=== PATIENT | female | born 1985 | race Caucasian/White ===

== ENCOUNTER 2018-07-11 22:18 | Emergency (ER) | payer MEDICAID ==
--- NOTE | 2018-07-11 22:30 | ER Report ---
History and Physical Time Seen By MD: 22:30 Hx. of Stated Complaint: BS OVER 600 AT HOME. HPI/ROS CHIEF COMPLAINT: blood glucose high HISTORY OF PRESENT ILLNESS: This is a 32 year old female. She had elevated glucose at home. Blood glucose meter read "hi". Has been urinating more and drinking more, but feels dehydrated. Took her [place] and Novolog insulin tonight, correction dose of Novolog. No recent illnesses. No cough or chest pain. No fever or chills. Normal bowel and urination. Mild nausea. No vomiting. No change in medicines, the insulin pens are new pens. Allergies: Coded Allergies: lisinopril (Verified Adverse Reaction, Unknown, 07/11/18) "INCREASES BLOOD SUGAR" Reviewed Nurses Notes: Yes Hx Substance Use Disorder: No Hx Alcohol Use: No Constitutional Vital Sign - Last 24 Hours 07/11/18 07/11/18 07/11/18 07/11/18 22:23 22:30 22:54 23:00 Temp 98.1 Pulse 116 117 101 Resp 16 B/P (MAP) 184/106 159/92 (114) 152/101 (118) Pulse Ox 93 94 92 O2 Delivery Room Air 07/11/18 07/12/18 07/12/18 07/12/18 23:30 00:00 01:00 01:29 Pulse 98 100 B/P (MAP) 139/94 (109) 136/77 (96) 133/90 (104) Pulse Ox 94 94 94 Intake and Output 07/11/18 07/11/18 07/12/18 15:00 23:00 07:00 Intake Total 2000 ml Balance 2000 ml Physical Exam General Appearance: The patient is alert, has no immediate need for airway protection and no current signs of toxicity. Eyes: Pupils equal and round no injection. ENT: Normal oral mucosa. Moist mucous membranes. Tympanic membranes are normal. Neck: Neck is supple and non tender. Respiratory: Chest is non tender, lungs are clear to auscultation. Cardiac: regular rate and rhythm Gastrointestinal: Abdomen is soft and non tender, no masses, bowel sounds normal. Musculoskeletal: Extremities have full range of motion. Non tender. Skin: No rashes or lesions. DIFFERENTIAL DIAGNOSIS: After history and physical exam differential diagnosis was considered for elevated glucose, will treat from some dehydration and check for signs of DKA. Medical Decision Making Data Points Result Diagram: 07/11/18224907/11/182249 Laboratory Hematology Test 07/11/18 22:50 07/11/18 23:53 Red Blood Count 4.93 M/uL (4.17-5.56) Mean Corpuscular Volume 84.9 fL (80.0-96.0) Mean Corpuscular Hemoglobin 28.8 pg (26.0-33.0) Mean Corpuscular Hemoglobin Concent 33.9 g/dL (32.0-36.0) Red Cell Distribution Width 13.2 % (11.5-14.5) Mean Platelet Volume 9.9 fL (7.2-11.1) Neutrophils (%) (Auto) 55.7 % (39.4-72.5) Lymphocytes (%) (Auto) 36.5 % (17.6-49.6) Monocytes (%) (Auto) 6.6 % (4.1-12.4) Eosinophils (%) (Auto) 0.4 % (0.4-6.7) Basophils (%) (Auto) 0.8 % (0.3-1.4) Nucleated RBC Relative Count (auto) 0.0 /100WBC Neutrophils # (Auto) 4.2 K/uL (2.0-7.4) Lymphocytes # (Auto) 2.8 K/uL (1.3-3.6) Monocytes # (Auto) 0.5 K/uL (0.3-1.0) Eosinophils # (Auto) 0.0 K/uL (0.0-0.5) Basophils # (Auto) 0.1 K/uL (0.0-0.1) Nucleated RBC Absolute Count (auto) 0.00 K/uL Urine Color Colorless Urine Clarity Clear Urine pH 6.0 pH (4.8-9.5) Urine Specific [place] 1.017 Urine Protein 100 mg/dL (NEGATIVE) Urine Glucose (UA) 500 mg/dL (NEGATIVE) Urine Ketones Trace mg/dL (NEGATIVE) Urine Blood Small (NEGATIVE) Urine Nitrite Negative (NEGATIVE) Urine Bilirubin Negative (NEGATIVE) Urine Urobilinogen Negative mg/dL (0.2-1.9) Urine Leukocyte Esterase Negative (NEGATIVE) Urine RBC 1 /HPF (0-2/HPF) Urine WBC <1 /HPF (0-5/HPF) Urine Squamous Epithelial Cells Many /LPF (</=FEW) Urine Bacteria Negative /HPF (NONE-FEW) Urine Mucus None /HPF (NONE-FEW) Sodium Level 131 mmol/L (137-145) Potassium Level 4.4 mmol/L (3.5-5.0) Chloride Level 96 mmol/L (98-107) Carbon Dioxide Level 20 mmol/L (22-31) Blood Urea Nitrogen 26 mg/dl (7-18) Creatinine 1.10 mg/dl (0.52-1.04) Glomerular Filtration Rate Calc 57.9 Random Glucose 554 mg/dl (75-110) Calcium Level 9.0 mg/dl (8.4-10.2) Total Bilirubin 0.3 mg/dl (0.2-1.3) Aspartate Amino Transf (AST/SGOT) 28 U/L (0-35) Alanine Aminotransferase (ALT/SGPT) 20 U/L (0-56) Alkaline Phosphatase 96 U/L (0-126) Total Protein 7.3 g/dl (6.3-8.2) Albumin 4.1 g/dl (3.5-5.0) Acetone, Qualitative Negative Whole Blood Glucose 369 mg/DL (75-110) Chemistry Test 07/11/18 22:50 07/11/18 23:53 White Blood Count 7.6 k/uL (4.5-11.0) Red Blood Count 4.93 M/uL (4.17-5.56) Hemoglobin 14.2 g/dL (12.0-16.0) Hematocrit 41.9 % (34.0-47.0) Mean Corpuscular Volume 84.9 fL (80.0-96.0) Mean Corpuscular Hemoglobin 28.8 pg (26.0-33.0) Mean Corpuscular Hemoglobin Concent 33.9 g/dL (32.0-36.0) Red Cell Distribution Width 13.2 % (11.5-14.5) Platelet Count 266 K/uL (150-450) Mean Platelet Volume 9.9 fL (7.2-11.1) Neutrophils (%) (Auto) 55.7 % (39.4-72.5) Lymphocytes (%) (Auto) 36.5 % (17.6-49.6) Monocytes (%) (Auto) 6.6 % (4.1-12.4) Eosinophils (%) (Auto) 0.4 % (0.4-6.7) Basophils (%) (Auto) 0.8 % (0.3-1.4) Nucleated RBC Relative Count (auto) 0.0 /100WBC Neutrophils # (Auto) 4.2 K/uL (2.0-7.4) Lymphocytes # (Auto) 2.8 K/uL (1.3-3.6) Monocytes # (Auto) 0.5 K/uL (0.3-1.0) Eosinophils # (Auto) 0.0 K/uL (0.0-0.5) Basophils # (Auto) 0.1 K/uL (0.0-0.1) Nucleated RBC Absolute Count (auto) 0.00 K/uL Urine Color Colorless Urine Clarity Clear Urine pH 6.0 pH (4.8-9.5) Urine Specific [place] 1.017 Urine Protein 100 mg/dL (NEGATIVE) Urine Glucose (UA) 500 mg/dL (NEGATIVE) Urine Ketones Trace mg/dL (NEGATIVE) Urine Blood Small (NEGATIVE) Urine Nitrite Negative (NEGATIVE) Urine Bilirubin Negative (NEGATIVE) Urine Urobilinogen Negative mg/dL (0.2-1.9) Urine Leukocyte Esterase Negative (NEGATIVE) Urine RBC 1 /HPF (0-2/HPF) Urine WBC <1 /HPF (0-5/HPF) Urine Squamous Epithelial Cells Many /LPF (</=FEW) Urine Bacteria Negative /HPF (NONE-FEW) Urine Mucus None /HPF (NONE-FEW) Glomerular Filtration Rate Calc 57.9 Calcium Level 9.0 mg/dl (8.4-10.2) Total Bilirubin 0.3 mg/dl (0.2-1.3) Aspartate Amino Transf (AST/SGOT) 28 U/L (0-35) Alanine Aminotransferase (ALT/SGPT) 20 U/L (0-56) Alkaline Phosphatase 96 U/L (0-126) Total Protein 7.3 g/dl (6.3-8.2) Albumin 4.1 g/dl (3.5-5.0) Acetone, Qualitative Negative Whole Blood Glucose 369 mg/DL (75-110) Toxicology Test 07/11/18 22:50 Acetone, Qualitative Negative Urinalysis Test 07/11/18 22:50 Urine Color Colorless Urine Clarity Clear Urine pH 6.0 pH (4.8-9.5) Urine Specific [place] 1.017 Urine Protein 100 mg/dL (NEGATIVE) Urine Glucose (UA) 500 mg/dL (NEGATIVE) Urine Ketones Trace mg/dL (NEGATIVE) Urine Blood Small (NEGATIVE) Urine Nitrite Negative (NEGATIVE) Urine Bilirubin Negative (NEGATIVE) Urine Urobilinogen Negative mg/dL (0.2-1.9) Urine Leukocyte Esterase Negative (NEGATIVE) Urine RBC 1 /HPF (0-2/HPF) Urine WBC <1 /HPF (0-5/HPF) Urine Squamous Epithelial Cells Many /LPF (</=FEW) Urine Bacteria Negative /HPF (NONE-FEW) Urine Mucus None /HPF (NONE-FEW) ED Course/Re-evaluation Clinical Indication for ER IV: Hydration, IV Access ED Course Trace ketones in urine, negative serum acetone. Improved with 2 liters of fluid. Blood sugars coming down. Will continue with correction doses at home. Decision to Disposition Date: Jul 12, 2018 Decision to Disposition Time: 01:24 Depart Departure Latest Vital Signs Vital Signs Date Time Temp Pulse Resp B/P (MAP) Pulse Ox O2 Delivery O2 Flow Rate FiO2 07/12/18 01:29 133/90 (104) 07/12/18 01:00 100 94 07/11/18 22:23 98.1 16 Room Air Impression: Primary Impression: Hyperglycemia due to type 2 diabetes mellitus Condition: Improved Disposition: HOME OR SELF-CARE Patient Instructions: Diabetic Hyperglycemia (ED) Additional Instructions: Keep using your correction doses of insulin to help with the elevated blood sugars. Rest and increase fluid intake. Follow-up with your primary care provider. 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
[2018-07-11] MEDS ORDERED: NS(*) 0.9% 1000 ML BAG 1,000 ML IV ONE ×2 (22:40→23:50)
[2018-07-11 23:07] LABS: PLATELET COUNT, AUTOMATED 266 K/uL (150-450)
[2018-07-12 01:29] VITALS: BP 133/90
== END 2018-07-12 01:42 | disposition home or self-care (01) ==
LOC: ER 22:30
DX: E11.65 Type 2 diabetes mellitus with hyperglycemia (principal)
CPT/HCPCS: 36416; 81001; 82009; 82948; 85025; 96360; 96361; 99283; J7030; 82040; 82247; 82310; 82374; 82435; 82565; 82947; 84075; 84132; 84155; 84295; 84450; 84460; 84520

== ENCOUNTER 2018-09-05 09:20 | Emergency (ER) | payer MEDICAID ==
--- NOTE | 2018-09-05 09:33 | ER Report ---
History and Physical Time Seen By MD: 09:33 HPI/ROS 33 y/o female with Type 1 DM presents with recent morning low blood sugars for the past few weeks. She is concerned today b/c her blood sugar was not as low as it has been, but yet she feels weak. She was so weak that her ex boyfriend could not get her out of the hotel room where she lives with her 11 y/o son. Had to call paramedics. States she recently moved to [place] from [place]. She does not have a PCM in [place] yet, but would like to keep her physician in [place]. She has not had her insulin regimen changed in years. She ate oranges after finding her glucose was 65. She now feels better. SHe does not have any complaints at this time, and says he feels back to her baseline. Allergies: Coded Allergies: lisinopril (Verified Adverse Reaction, Unknown, 07/11/18) "INCREASES BLOOD SUGAR" Home Meds Reported Medications Insulin Aspart (NOVOLOG) 100 Unit/Ml Soln, 100 UNIT SUBQ 09/05/18 Insulin Detemir (LEVEMIR) 100 Unit/Ml Injs, 100 UNIT SUBQ 09/05/18 Hx Substance Use Disorder: No Hx Alcohol Use: No Constitutional Vital Sign - Last 24 Hours 09/05/18 09/05/18 09/05/18 09/05/18 09:30 09:31 09:35 09:50 Temp 98.2 Pulse 103 97 97 Resp 18 B/P (MAP) 144/89 (107) 144/89 Pulse Ox 94 95 95 O2 Delivery Room Air 09/05/18 09/05/18 09/05/18 09/05/18 10:00 10:05 10:20 10:30 Pulse 95 93 B/P (MAP) 129/86 (100) 135/86 (102) Pulse Ox 95 95 09/05/18 09/05/18 09/05/18 10:35 10:50 11:00 Pulse 94 100 B/P (MAP) 153/94 (113) Pulse Ox 94 95 Physical Exam General Appearance: The patient is alert, has no immediate need for airway protection and no current signs of toxicity. Eyes: Pupils equal and round no injection. Respiratory: Chest is non tender, lungs are clear to auscultation. Cardiac: regular rate and rhythm Gastrointestinal: Abdomen is soft and non tender, no masses, bowel sounds normal. Skin: No rashes or lesions. Neuro: Alert and oriented. Normal gait. Strength and sensation grossly in tact. Medical Decision Making Data Points Laboratory Hematology Test 09/05/18 09:25 09/05/18 10:02 Urine Color Yellow Urine Clarity Cloudy Urine pH 6.0 pH (4.8-9.5) Urine Specific [place] 1.016 Urine Protein 100 mg/dL (NEGATIVE) Urine Glucose (UA) 50 mg/dL (NEGATIVE) Urine Ketones 20 mg/dL (NEGATIVE) Urine Blood Negative (NEGATIVE) Urine Nitrite Negative (NEGATIVE) Urine Bilirubin Negative (NEGATIVE) Urine Urobilinogen Negative mg/dL (0.2-1.9) Urine Leukocyte Esterase Moderate (NEGATIVE) Urine RBC 7 /HPF (0-2/HPF) Urine WBC 30 /HPF (0-5/HPF) Urine Squamous Epithelial Cells Many /LPF (</=FEW) Urine Amorphous Crystals Few /HPF Urine Bacteria Negative /HPF (NONE-FEW) Urine Mucus None /HPF (NONE-FEW) Urine HCG, Qualitative Negative (NEGATIVE) Whole Blood Glucose 170 mg/DL (75-110) Chemistry Test 09/05/18 09:25 09/05/18 10:02 Urine Color Yellow Urine Clarity Cloudy Urine pH 6.0 pH (4.8-9.5) Urine Specific [place] 1.016 Urine Protein 100 mg/dL (NEGATIVE) Urine Glucose (UA) 50 mg/dL (NEGATIVE) Urine Ketones 20 mg/dL (NEGATIVE) Urine Blood Negative (NEGATIVE) Urine Nitrite Negative (NEGATIVE) Urine Bilirubin Negative (NEGATIVE) Urine Urobilinogen Negative mg/dL (0.2-1.9) Urine Leukocyte Esterase Moderate (NEGATIVE) Urine RBC 7 /HPF (0-2/HPF) Urine WBC 30 /HPF (0-5/HPF) Urine Squamous Epithelial Cells Many /LPF (</=FEW) Urine Amorphous Crystals Few /HPF Urine Bacteria Negative /HPF (NONE-FEW) Urine Mucus None /HPF (NONE-FEW) Urine HCG, Qualitative Negative (NEGATIVE) Whole Blood Glucose 170 mg/DL (75-110) Urinalysis Test 09/05/18 09:25 Urine Color Yellow Urine Clarity Cloudy Urine pH 6.0 pH (4.8-9.5) Urine Specific [place] 1.016 Urine Protein 100 mg/dL (NEGATIVE) Urine Glucose (UA) 50 mg/dL (NEGATIVE) Urine Ketones 20 mg/dL (NEGATIVE) Urine Blood Negative (NEGATIVE) Urine Nitrite Negative (NEGATIVE) Urine Bilirubin Negative (NEGATIVE) Urine Urobilinogen Negative mg/dL (0.2-1.9) Urine Leukocyte Esterase Moderate (NEGATIVE) Urine RBC 7 /HPF (0-2/HPF) Urine WBC 30 /HPF (0-5/HPF) Urine Squamous Epithelial Cells Many /LPF (</=FEW) Urine Amorphous Crystals Few /HPF Urine Bacteria Negative /HPF (NONE-FEW) Urine Mucus None /HPF (NONE-FEW) Urine HCG, Qualitative Negative (NEGATIVE) Microbiology Microbiology Date/Time Source Procedure Growth Status 09/05/18 09:25 Clean Catch Midstream Ur Urine Culture - Preliminary Resulted ED Course/Re-evaluation ED Course Blood sugar in the 60s upon waking this morning. Complained of generalized weakness such that paramedics had to be called, b/c she could not walk. Could have been low blood sugar which resolved with eating oranges. Did not take any insulin this morning. Back to baseline after arrival to the ED. 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 No evidence of infection. HCG negative. I will recommend that she decrease the amount of insulin she takes at night. I do not think she needs any further testing at this time. Decision to Disposition Date: Sep 05, 2018 Decision to Disposition Time: 12:00 Depart Departure Latest Vital Signs Vital Signs Date Time Temp Pulse Resp B/P (MAP) Pulse Ox O2 Delivery O2 Flow Rate FiO2 09/05/18 11:00 153/94 (113) 09/05/18 10:50 100 95 09/05/18 09:31 98.2 18 Room Air Impression: Primary Impression: Hypoglycemia Condition: Improved Disposition: HOME OR SELF-CARE Additional Instructions: Decrease your nightly insulin from 36 units to 33 units nightly. Follow up with a local primary doctor or call your own on Friday for follow up. DEBORAH MCMILLAN MD Sep 05, 2018 09:33
[2018-09-05] MEDS ORDERED: NOVOLOG SUBQ (09:41)
[2018-09-05] MEDS ORDERED: LEVI SUBQ (09:41)
[2018-09-05 11:00] VITALS: BP 153/94
[2018-09-06] MEDS ORDERED: CEPH500T7 PO (16:18)
== END 2018-09-05 11:07 | disposition home or self-care (01) ==
LOC: ER 09:35
DX: E10.649 Type 1 diabetes mellitus with hypoglycemia without coma (principal)
CPT/HCPCS: 36416; 81001; 81025; 82948; 87088; 99282

== ENCOUNTER → 2018-09-05 | Outpatient (CLI) | payer MEDICAID ==
[~2018-09-05] MED LIST: CEPH500T7 PO; LEVI SUBQ; NOVOLOG SUBQ
== END ==
LOC: AMB 08:45
PROVIDERS: ATTEND Nurse Practitioner
DX: Z02.9 Encounter for administrative examinations, unspecified (principal)

== ENCOUNTER 2018-09-06 12:25 | Emergency (ER) | payer MEDICAID ==
[~2018-09-06 12:25] MED LIST changes: -CEPH500T7 PO
--- NOTE | 2018-09-06 12:35 | ER Report ---
History and Physical Time Seen By MD: 12:32 Hx. of Stated Complaint: PATIENT STATES THAT NOTHING HAS GOTTEN BETTER SINCE HER VISIT YESTERDAY; STATES THAT SHE WAKES UP FEELING "DRUNK", LIGHT HEADED; ALL STARTED FRIDAY NIGHT; WHEN SHE IS NOT; STATES THAT SHE FEELS FINE NOW BUT CANT KEEP FEELING LIKE THIS BEING A SINGLE MOTHER (PAMELA PATTERSON [employer]CH[employer] ADMINISTRATOR-BC) Time Seen By MD: 13:00 (DEBORAH MCMILLAN MD) HPI/ROS CHIEF COMPLAINT: Lightheadedness HISTORY OF PRESENT ILLNESS: This is a 31. Female presents emergency department for lightheadedness. Patient was seen and evaluated in the emergency department yesterday for similar symptoms. She has a 22 year history of insulin-dependent diabetes. She states that over the last 2-3 days she's been waking up "like I'm drunk in the morning but I'm sober", blood sugars been in the 70s according the patient, no unusual hypoglycemic events. No fevers or chills. No nausea or vomiting. The episodes clear after about 3 hours, she did not call the paramedics today as she said "I was waiting for someone to come and picker my kid", she does present with a friend. She has no rashes. No meningismus. No chest pain or shortness of breath. No abdominal pain or dysuria. She states she has been in the [place] since May and has not established with a primary care provider. REVIEW OF SYSTEMS: Constitutional: No fever, no chills. Eyes: No discharge. ENT: No sore throat. Cardiovascular: No chest pain, no palpitations. Respiratory: No cough, no shortness of breath. Gastrointestinal: No abdominal pain, no vomiting. Genitourinary: No hematuria. Musculoskeletal: No back pain. Skin: No rashes. Neurological: As above. (PAMELA PATTERSON-BC) HPI/ROS Seen yesterday for morning hypoglycemia and generalized weakness. Improved after eating oranges and coming to the emergency department. He was directed to take less insulin last night. Woke up this morning with a blood sugar in the 70s, but yet still says she felt as if she were "intoxicated." She denies any headaches, fever, chest pain, shortness of breath, or recent trauma. No changes in vision. Today's symptoms improved with time. Her sister is at the bedside, and said that she talked with the patient on the phone and she seemed "intoxicated." The patient denies any drug or alcohol use. He is concerned that these episodes over the past few mornings is not due to her diabetes. Of note she has been in the middle of an estranged relationship over the past few weeks, and last week moved into a hotel with her 11-year-old son. She otherwise has no complaints. Remainder of the 14 system rev: Yes (DEBORAH MCMILLAN MD) Allergies: Coded Allergies: lisinopril (Verified Adverse Reaction, Unknown, 07/11/18) "INCREASES BLOOD SUGAR" Home Meds Active Scripts Cephalexin 500 Mg Tab (KEFLEX 500 MG TAB) 500 Mg Tablet, 500 MG PO BID, #10 TAB Prov:DEBORAH MCMILLAN MD 09/06/18 Reported Medications Insulin Aspart (NOVOLOG) 100 Unit/Ml Soln, 100 UNIT SUBQ 09/05/18 Insulin Detemir (LEVEMIR) 100 Unit/Ml Injs, 100 UNIT SUBQ 09/05/18 Hx Substance Use Disorder: No Hx Alcohol Use: No (PAMELA PATTERSON [employer] ADMINISTRATOR-BC) Constitutional Vital Sign - Last 24 Hours 09/06/18 09/06/18 09/06/18 09/06/18 12:28 12:30 13:00 13:28 Temp 98.6 Pulse 107 96 Resp 17 B/P (MAP) 152/96 152/96 (114) 134/93 (107) Pulse Ox 95 97 O2 Delivery Room Air 09/06/18 09/06/18 09/06/18 09/06/18 13:30 14:00 14:30 15:00 Pulse 92 94 B/P (MAP) 120/91 (101) 133/88 (103) 152/102 (119) 141/85 (103) Pulse Ox 95 94 90 93 09/06/18 09/06/18 09/06/18 15:30 16:00 16:05 Pulse 88 94 93 B/P (MAP) 134/103 (113) 143/107 (119) Pulse Ox 92 95 97 (DEBORAH MCMILLAN MD) Physical Exam General Appearance: [The patient is alert, has no immediate need for airway protection and no signs of toxicity.] [ ] [Eyes:] [Pupils equal and round no pallor or injection.] [ENT, Mouth:] [Mucous membranes are moist.] Respiratory: [There are no retractions, lungs are clear to auscultation.] Cardiovascular: [Regular rate and rhythm.] [ ] Gastrointestinal: [Abdomen is soft and non tender, no masses, bowel sounds n ormal.] [Neurological:] [ ] [Skin:] [Warm and dry, no rashes.] [Musculoskeletal:] [Neck is supple non tender.] [Extremities are nontender, nonswollen and have full range of motion.] [ ] [DIFFERENTIAL DIAGNOSIS: After history and physical exam differential diagnosis was considered for] [ ] (PAMELA PATTERSON [facility] Physical Exam General Appearance: The patient is alert, has no immediate need for airway protection and no current signs of toxicity. Eyes: Pupils equal and round no injection. Respiratory: Chest is non tender, lungs are clear to auscultation. Cardiac: regular rate and rhythm Gastrointestinal: Abdomen is soft and non tender, no masses, bowel sounds normal. Neck: Neck is supple and non tender. MSK: No spine TTP Extremities have full range of motion and are non tender. Skin: No rashes or lesions. Neuro: STrength/sensation grossly normal, no ataxia, no drift, normal reflexes, no rhomberg, CN in tact DIFFERENTIAL DIAGNOSIS: After history and physical exam differential diagnosis was considered for weakness including but not limited to electrolyte abnormality, depression, anxiety, CVA, spinal cord abnormality, and infectious causes. (DEBORAH MCMILLAN MD) Medical Decision Making Data Points Result Diagram: 09/06/18 1322 09/06/18 1322 Laboratory Hematology Test 09/06/18 12:28 09/06/18 12:30 09/06/18 13:22 09/06/18 14:55 Urine Color Yellow Urine Clarity Slightly-cloudy Urine pH 7.0 pH (4.8-9.5) Urine Specific [place] 1.017 Urine Protein 100 mg/dL (NEGATIVE) Urine Glucose (UA) 150 mg/dL (NEGATIVE) Urine Ketones Negative mg/dL (NEGATIVE) Urine Blood Negative (NEGATIVE) Urine Nitrite Negative (NEGATIVE) Urine Bilirubin Negative (NEGATIVE) Urine Urobilinogen Negative mg/dL (0.2-1.9) Urine Leukocyte Esterase Small (NEGATIVE) Urine RBC 2 /HPF (0-2/HPF) Urine WBC 13 /HPF (0-5/HPF) Urine Squamous Epithelial Cells Many /LPF (</=FEW) Urine Amorphous Crystals Few /HPF Urine Bacteria Negative /HPF (NONE-FEW) Urine Hyaline Casts Few /LPF (NONE-FEW) Urine Mucus Few /HPF (NONE-FEW) Whole Blood Glucose 252 mg/DL (75-110) Red Blood Count 5.05 M/uL (4.17-5.56) Mean Corpuscular Volume 85.4 fL (80.0-96.0) Mean Corpuscular Hemoglobin 28.1 pg (26.0-33.0) Mean Corpuscular Hemoglobin Concent 32.9 g/dL (32.0-36.0) Red Cell Distribution Width 13.3 % (11.5-14.5) Mean Platelet Volume 9.3 fL (7.2-11.1) Neutrophils (%) (Auto) 54.3 % (39.4-72.5) Lymphocytes (%) (Auto) 38.2 % (17.6-49.6) Monocytes (%) (Auto) 6.6 % (4.1-12.4) Eosinophils (%) (Auto) 0.4 % (0.4-6.7) Basophils (%) (Auto) 0.5 % (0.3-1.4) Nucleated RBC Relative Count (auto) 0.0 /100WBC Neutrophils # (Auto) 4.1 K/uL (2.0-7.4) Lymphocytes # (Auto) 2.8 K/uL (1.3-3.6) Monocytes # (Auto) 0.5 K/uL (0.3-1.0) Eosinophils # (Auto) 0.0 K/uL (0.0-0.5) Basophils # (Auto) 0.0 K/uL (0.0-0.1) Nucleated RBC Absolute Count (auto) 0.00 K/uL Peripheral Blood Smear No Y/N Sodium Level 139 mmol/L (137-145) Potassium Level 3.8 mmol/L (3.5-5.0) Chloride Level 109 mmol/L (98-107) Carbon Dioxide Level 22 mmol/L (22-31) Blood Urea Nitrogen 12 mg/dl (7-18) Creatinine 0.90 mg/dl (0.52-1.04) Glomerular Filtration Rate Calc > 60.0 Random Glucose 205 mg/dl (75-110) Calcium Level 8.8 mg/dl (8.4-10.2) Troponin I < 0.012 ng/ml Chemistry Test 09/06/18 12:28 09/06/18 12:30 09/06/18 13:22 09/06/18 14:55 Urine Color Yellow Urine Clarity Slightly-cloudy Urine pH 7.0 pH (4.8-9.5) Urine Specific [place] 1.017 Urine Protein 100 mg/dL (NEGATIVE) Urine Glucose (UA) 150 mg/dL (NEGATIVE) Urine Ketones Negative mg/dL (NEGATIVE) Urine Blood Negative (NEGATIVE) Urine Nitrite Negative (NEGATIVE) Urine Bilirubin Negative (NEGATIVE) Urine Urobilinogen Negative mg/dL (0.2-1.9) Urine Leukocyte Esterase Small (NEGATIVE) Urine RBC 2 /HPF (0-2/HPF) Urine WBC 13 /HPF (0-5/HPF) Urine Squamous Epithelial Cells Many /LPF (</=FEW) Urine Amorphous Crystals Few /HPF Urine Bacteria Negative /HPF (NONE-FEW) Urine Hyaline Casts Few /LPF (NONE-FEW) Urine Mucus Few /HPF (NONE-FEW) Whole Blood Glucose 252 mg/DL (75-110) White Blood Count 7.5 k/uL (4.5-11.0) Red Blood Count 5.05 M/uL (4.17-5.56) Hemoglobin 14.2 g/dL (12.0-16.0) Hematocrit 43.1 % (34.0-47.0) Mean Corpuscular Volume 85.4 fL (80.0-96.0) Mean Corpuscular Hemoglobin 28.1 pg (26.0-33.0) Mean Corpuscular Hemoglobin Concent 32.9 g/dL (32.0-36.0) Red Cell Distribution Width 13.3 % (11.5-14.5) Platelet Count 254 K/uL (150-450) Mean Platelet Volume 9.3 fL (7.2-11.1) Neutrophils (%) (Auto) 54.3 % (39.4-72.5) Lymphocytes (%) (Auto) 38.2 % (17.6-49.6) Monocytes (%) (Auto) 6.6 % (4.1-12.4) Eosinophils (%) (Auto) 0.4 % (0.4-6.7) Basophils (%) (Auto) 0.5 % (0.3-1.4) Nucleated RBC Relative Count (auto) 0.0 /100WBC Neutrophils # (Auto) 4.1 K/uL (2.0-7.4) Lymphocytes # (Auto) 2.8 K/uL (1.3-3.6) Monocytes # (Auto) 0.5 K/uL (0.3-1.0) Eosinophils # (Auto) 0.0 K/uL (0.0-0.5) Basophils # (Auto) 0.0 K/uL (0.0-0.1) Nucleated RBC Absolute Count (auto) 0.00 K/uL Peripheral Blood Smear No Y/N Glomerular Filtration Rate Calc > 60.0 Calcium Level 8.8 mg/dl (8.4-10.2) Troponin I < 0.012 ng/ml Urinalysis Test 09/06/18 12:28 Urine Color Yellow Urine Clarity Slightly-cloudy Urine pH 7.0 pH (4.8-9.5) Urine Specific [place] 1.017 Urine Protein 100 mg/dL (NEGATIVE) Urine Glucose (UA) 150 mg/dL (NEGATIVE) Urine Ketones Negative mg/dL (NEGATIVE) Urine Blood Negative (NEGATIVE) Urine Nitrite Negative (NEGATIVE) Urine Bilirubin Negative (NEGATIVE) Urine Urobilinogen Negative mg/dL (0.2-1.9) Urine Leukocyte Esterase Small (NEGATIVE) Urine RBC 2 /HPF (0-2/HPF) Urine WBC 13 /HPF (0-5/HPF) Urine Squamous Epithelial Cells Many /LPF (</=FEW) Urine Amorphous Crystals Few /HPF Urine Bacteria Negative /HPF (NONE-FEW) Urine Hyaline Casts Few /LPF (NONE-FEW) Urine Mucus Few /HPF (NONE-FEW) (DEBORAH MCMILLAN MD) ED Course/Re-evaluation ED Course Seen both yesterday and today for morning generalized weakness which resolved both time and yesterday with eating oranges. This morning, the patient was not hypoglycemic. She does not wake up with a headache or nausea vomiting. Her symptoms of generalized weakness improve with time. She has a normal neuro exam and normal labs. His a normal EKG. A CT scan of the head was normal as well. I do not think she needs any further testing at this time. Her UA both yesterday and today were not a clean-catch and could represent an early UTI. Cultures on both have been sent. I will start her on Keflex today in the case that she is developing an early urinary tract infection. She will follow up this week with a local primary care physician or call the emergency department for her results. Otherwise follow-up this week with her automotive painter. Decision to Disposition Date: Sep 06, 2018 Decision to Disposition Time: 16:14 (DEBORAH MCMILLAN MD) Depart Departure Latest Vital Signs Vital Signs Date Time Temp Pulse Resp B/P (MAP) Pulse Ox O2 Delivery O2 Flow Rate FiO2 09/06/18 16:05 93 97 09/06/18 16:00 143/107 (119) 09/06/18 12:28 98.6 17 Room Air (DEBORAH MCMILLAN MD) Impression: Primary Impression: Weakness generalized Condition: Improved Disposition: HOME OR SELF-CARE New Scripts Cephalexin 500 Mg Tab (KEFLEX 500 MG TAB) 500 Mg Tablet 500 MG PO BID, #10 TAB Prov: DEBORAH MCMILLAN MD 09/06/18 Additional Instructions: Stay on the lower dose of insulin tonight. Try to get a follow up appointment with your automotive painter this week. PAMELA PATTERSON [employer]CH[employer] ADMINISTRATOR-BC Sep 06, 2018 12:35 DEBORAH MCMILLAN MD Sep 06, 2018 16:19
[2018-09-06 13:30] LABS: PLATELET COUNT, AUTOMATED 254 K/uL (150-450)
--- NOTE | 2018-09-06 15:00 | RADIOLOGY IMAGING REPORT ---
FACILITY: [facility] PATIENT NAME: Leny Bond : 1985 MR: [id number] V: [id number] EXAM DATE: [id number] ORDERING PHYSICIAN: DEBORAH MCMILLAN TECHNOLOGIST: Location: [facility] - [place], [place] Patient: Leny Bond : 1985 Visit/Account:[id number] Date of Sevice: 09/06/2018 CT Head without contrast Indication: Weakness, dizziness and head pain. Comparison: None available Technique: Axial CT images were obtained through the brain from the skull base to the vertex without administration of IV contrast. Reformatted coronal and sagittal images were also obtained. One of the following dose optimization techniques was utilized in the performance of this exam: autom ated exposure control; adjustment of the mA and/or kV according to the patient's size; or use of an i terative reconstruction technique. Specific details can be referenced in the facility's radiology CT exam operational policy. Findings: No evidence of mass, mass effect, or midline shift. No acute intracranial hemorrhage or acute territorial infarction. No extra-axial fluid collection or hydrocephalus. No abnormal density. Patiño/white matter differentiat ion appears normal. Bony structures show no fractures or lesions. Mucosal thickening seen in left maxillary sinus. The remaining sinuses and mastoids visualized are cl ear. IMPRESSION: 1. No acute intracranial abnormality. 2. Left maxillary sinus disease. Report Dictated By: Cleve Brizuela at 09/06/2018 2:51 PM Report E-Signed By: Cleve Brizuela at 09/06/2018 2:56 PM WSN:[id number]
--- NOTE | 2018-09-06 15:10 | EKG ---
FACILITY: [facility] - [place] PATIENT NAME: FARTUN CAMACHO : [id number] MR: [id number] V: [id number] EXAM DATE: ORDERING PHYSICIAN: FRANCESCO PATTERSON TECHNOLOGIST: WILMA Test Reason : NEUROLOGICAL CHANGES Blood Pressure : / mmHG Vent. Rate : 095 BPM Atrial Rate : 095 BPM P-R Int : 122 ms QRS Dur : 068 ms QT Int : 330 ms P-R-T Axes : 050 032 039 degrees QTc Int : 414 ms Sinus rhythm Possible left atrial enlargement Decreased R wave progression anteriorly Nonspecific ST findings No previous ECGs available Confirmed by MARLENE BUTLER ([id number]) on 09/06/2018 9:31:58 PM Referred By: Francesco Confirmed By:MARLENE BUTLER
[2018-09-06 16:00] VITALS: BP 143/107
[2018-09-06] MEDS ORDERED: CEPHALEXIN MONO 500 MG CAP PO ONE (16:00)
[2018-09-06] MEDS ORDERED: CEPH500T7 PO (16:18)
--- NOTE | 2018-09-11 11:56 | ER Report ---
History and Physical Time Seen By MD: 13:00 HPI/ROS Seen yesterday for morning hypoglycemia and generalized weakness. Improved after eating oranges and coming to the emergency department. He was directed to take less insulin last night. Woke up this morning with a blood sugar in the 70s, but yet still says she felt as if she were "intoxicated." She denies any headaches, fever, chest pain, shortness of breath, or recent trauma. No changes in vision. Today's symptoms improved with time. Her sister is at the bedside, and said that she talked with the patient on the phone and she seemed "intoxicated." The patient denies any drug or alcohol use. He is concerned that these episodes over the past few mornings is not due to her diabetes. Of note she has been in the middle of an estranged relationship over the past few weeks, and last week moved into a hotel with her 11-year-old son. She otherwise has no complaints. Remainder of the 14 system rev: Yes Constitutional Vital Sign - Last 24 Hours 09/06/18 09/06/18 09/06/18 09/06/18 12:28 12:30 13:00 13:28 Temp 98.6 Pulse 107 96 Resp 17 B/P (MAP) 152/96 152/96 (114) 134/93 (107) Pulse Ox 95 97 O2 Delivery Room Air 09/06/18 09/06/18 09/06/18 09/06/18 13:30 14:00 14:30 15:00 Pulse 92 94 B/P (MAP) 120/91 (101) 133/88 (103) 152/102 (119) 141/85 (103) Pulse Ox 95 94 90 93 09/06/18 09/06/18 09/06/18 15:30 16:00 16:05 Pulse 88 94 93 B/P (MAP) 134/103 (113) 143/107 (119) Pulse Ox 92 95 97 Physical Exam General Appearance: The patient is alert, has no immediate need for airway protection and no current signs of toxicity. Eyes: Pupils equal and round no injection. Respiratory: Chest is non tender, lungs are clear to auscultation. Cardiac: regular rate and rhythm Gastrointestinal: Abdomen is soft and non tender, no masses, bowel sounds normal. Neck: Neck is supple and non tender. MSK: No spine TTP Extremities have full range of motion and are non tender. Skin: No rashes or lesions. Neuro: STrength/sensation grossly normal, no ataxia, no drift, normal reflexes, no rhomberg, CN in tact DIFFERENTIAL DIAGNOSIS: After history and physical exam differential diagnosis was considered for weakness including but not limited to electrolyte abnormality, depression, anxiety, CVA, spinal cord abnormality, and infectious c auses. Medical Decision Making Data Points Result Diagram: 09/06/18 1322 09/06/18 1322 Laboratory Hematology Test 09/06/18 12:28 09/06/18 12:30 09/06/18 13:22 09/06/18 14:55 Urine Color Yellow Urine Clarity Slightly-cloudy Urine pH 7.0 pH (4.8-9.5) Urine Specific [place] 1.017 Urine Protein 100 mg/dL (NEGATIVE) Urine Glucose (UA) 150 mg/dL (NEGATIVE) Urine Ketones Negative mg/dL (NEGATIVE) Urine Blood Negative (NEGATIVE) Urine Nitrite Negative (NEGATIVE) Urine Bilirubin Negative (NEGATIVE) Urine Urobilinogen Negative mg/dL (0.2-1.9) Urine Leukocyte Esterase Small (NEGATIVE) Urine RBC 2 /HPF (0-2/HPF) Urine WBC 13 /HPF (0-5/HPF) Urine Squamous Epithelial Cells Many /LPF (</=FEW) Urine Amorphous Crystals Few /HPF Urine Bacteria Negative /HPF (NONE-FEW) Urine Hyaline Casts Few /LPF (NONE-FEW) Urine Mucus Few /HPF (NONE-FEW) Whole Blood Glucose 252 mg/DL (75-110) Red Blood Count 5.05 M/uL (4.17-5.56) Mean Corpuscular Volume 85.4 fL (80.0-96.0) Mean Corpuscular Hemoglobin 28.1 pg (26.0-33.0) Mean Corpuscular Hemoglobin Concent 32.9 g/dL (32.0-36.0) Red Cell Distribution Width 13.3 % (11.5-14.5) Mean Platelet Volume 9.3 fL (7.2-11.1) Neutrophils (%) (Auto) 54.3 % (39.4-72.5) Lymphocytes (%) (Auto) 38.2 % (17.6-49.6) Monocytes (%) (Auto) 6.6 % (4.1-12.4) Eosinophils (%) (Auto) 0.4 % (0.4-6.7) Basophils (%) (Auto) 0.5 % (0.3-1.4) Nucleated RBC Relative Count (auto) 0.0 /100WBC Neutrophils # (Auto) 4.1 K/uL (2.0-7.4) Lymphocytes # (Auto) 2.8 K/uL (1.3-3.6) Monocytes # (Auto) 0.5 K/uL (0.3-1.0) Eosinophils # (Auto) 0.0 K/uL (0.0-0.5) Basophils # (Auto) 0.0 K/uL (0.0-0.1) Nucleated RBC Absolute Count (auto) 0.00 K/uL Peripheral Blood Smear No Y/N Sodium Level 139 mmol/L (137-145) Potassium Level 3.8 mmol/L (3.5-5.0) Chloride Level 109 mmol/L (98-107) Carbon Dioxide Level 22 mmol/L (22-31) Blood Urea Nitrogen 12 mg/dl (7-18) Creatinine 0.90 mg/dl (0.52-1.04) Glomerular Filtration Rate Calc > 60.0 Random Glucose 205 mg/dl (75-110) Calcium Level 8.8 mg/dl (8.4-10.2) Troponin I < 0.012 ng/ml Chemistry Test 09/06/18 12:28 09/06/18 12:30 09/06/18 13:22 09/06/18 14:55 Urine Color Yellow Urine Clarity Slightly-cloudy Urine pH 7.0 pH (4.8-9.5) Urine Specific [place] 1.017 Urine Protein 100 mg/dL (NEGATIVE) Urine Glucose (UA) 150 mg/dL (NEGATIVE) Urine Ketones Negative mg/dL (NEGATIVE) Urine Blood Negative (NEGATIVE) Urine Nitrite Negative (NEGATIVE) Urine Bilirubin Negative (NEGATIVE) Urine Urobilinogen Negative mg/dL (0.2-1.9) Urine Leukocyte Esterase Small (NEGATIVE) Urine RBC 2 /HPF (0-2/HPF) Urine WBC 13 /HPF (0-5/HPF) Urine Squamous Epithelial Cells Many /LPF (</=FEW) Urine Amorphous Crystals Few /HPF Urine Bacteria Negative /HPF (NONE-FEW) Urine Hyaline Casts Few /LPF (NONE-FEW) Urine Mucus Few /HPF (NONE-FEW) Whole Blood Glucose 252 mg/DL (75-110) White Blood Count 7.5 k/uL (4.5-11.0) Red Blood Count 5.05 M/uL (4.17-5.56) Hemoglobin 14.2 g/dL (12.0-16.0) Hematocrit 43.1 % (34.0-47.0) Mean Corpuscular Volume 85.4 fL (80.0-96.0) Mean Corpuscular Hemoglobin 28.1 pg (26.0-33.0) Mean Corpuscular Hemoglobin Concent 32.9 g/dL (32.0-36.0) Red Cell Distribution Width 13.3 % (11.5-14.5) Platelet Count 254 K/uL (150-450) Mean Platelet Volume 9.3 fL (7.2-11.1) Neutrophils (%) (Auto) 54.3 % (39.4-72.5) Lymphocytes (%) (Auto) 38.2 % (17.6-49.6) Monocytes (%) (Auto) 6.6 % (4.1-12.4) Eosinophils (%) (Auto) 0.4 % (0.4-6.7) Basophils (%) (Auto) 0.5 % (0.3-1.4) Nucleated RBC Relative Count (auto) 0.0 /100WBC Neutrophils # (Auto) 4.1 K/uL (2.0-7.4) Lymphocytes # (Auto) 2.8 K/uL (1.3-3.6) Monocytes # (Auto) 0.5 K/uL (0.3-1.0) Eosinophils # (Auto) 0.0 K/uL (0.0-0.5) Basophils # (Auto) 0.0 K/uL (0.0-0.1) Nucleated RBC Absolute Count (auto) 0.00 K/uL Peripheral Blood Smear No Y/N Glomerular Filtration Rate Calc > 60.0 Calcium Level 8.8 mg/dl (8.4-10.2) Troponin I < 0.012 ng/ml Urinalysis Test 09/06/18 12:28 Urine Color Yellow Urine Clarity Slightly-cloudy Urine pH 7.0 pH (4.8-9.5) Urine Specific [place] 1.017 Urine Protein 100 mg/dL (NEGATIVE) Urine Glucose (UA) 150 mg/dL (NEGATIVE) Urine Ketones Negative mg/dL (NEGATIVE) Urine Blood Negative (NEGATIVE) Urine Nitrite Negative (NEGATIVE) Urine Bilirubin Negative (NEGATIVE) Urine Urobilinogen Negative mg/dL (0.2-1.9) Urine Leukocyte Esterase Small (NEGATIVE) Urine RBC 2 /HPF (0-2/HPF) Urine WBC 13 /HPF (0-5/HPF) Urine Squamous Epithelial Cells Many /LPF (</=FEW) Urine Amorphous Crystals Few /HPF Urine Bacteria Negative /HPF (NONE-FEW) Urine Hyaline Casts Few /LPF (NONE-FEW) Urine Mucus Few /HPF (NONE-FEW) ED Course/Re-evaluation ED Course Seen both yesterday and today for morning generalized weakness which resolved both time and yesterday with eating oranges. This morning, the patient was not hypoglycemic. She does not wake up with a headache or nausea vomiting. Her symptoms of generalized weakness improve with time. She has a normal neuro exam and normal labs. His a normal EKG. A CT scan of the head was normal as well. I do not think she needs any further testing at this time. Her UA both yesterday and today were not a clean-catch and could represent an early UTI. Cultures on both have been sent. I will start her on Keflex today in the case that she is developing an early urinary tract infection. She will follow up this week with a local primary care physician or call the emergency department for her results. Otherwise follow-up this week with her fuse maker. Decision to Disposition Date: Sep 06, 2018 Decision to Disposition Time: 16:14 Depart Departure Latest Vital Signs Vital Signs Date Time Temp Pulse Resp B/P (MAP) Pulse Ox O2 Delivery O2 Flow Rate FiO2 09/06/18 16:05 93 97 09/06/18 16:00 143/107 (119) 09/06/18 12:28 98.6 17 Room Air Impression: Primary Impression: Weakness generalized Condition: Improved Disposition: HOME OR SELF-CARE New Scripts Cephalexin 500 Mg Tab (KEFLEX 500 MG TAB) 500 Mg Tablet 500 MG PO BID, #10 TAB Prov: DEBORAH MCMILLAN MD 09/06/18 Additional Instructions: Stay on the lower dose of insulin tonight. Try to get a follow up appointment with your fuse maker this week. DEBORAH MCMILLAN MD Sep 06, 2018 16:19 MTDD
== END 2018-09-06 16:26 | disposition home or self-care (01) ==
LOC: ER 12:30
DX: R53.1 Weakness (principal); R51 Headache; R42 Dizziness and giddiness
CPT/HCPCS: 36415; 36416; 70450; 81001; 82310; 82374; 82435; 82565; 82947; 82948; 84132; 84295; 84439; 84443; 84484; 84520; 85025; 87088; 93005; 99284

== ENCOUNTER 2018-09-10 21:51 | Emergency (ER) | payer MEDICAID ==
[~2018-09-10 21:51] MED LIST changes: +CEPH500T7 PO
--- NOTE | 2018-09-10 22:04 | ER Report ---
History and Physical Time Seen By MD: 22:04 Hx. of Stated Complaint: high bs since this morning. reports it is over 600 HPI/ROS CHIEF COMPLAINT: Elevated blood glucose HISTORY OF PRESENT ILLNESS: This is a 33-year-old female. She is having problems today with elevated blood glucose. She recently has been treated for a urinary tract infection and wonders if that could be the cause. Just started some new NovoLog insulin pens, so does not think it would be a bad dose of insulin. She has taken several correction doses today but still running high, blood glucose meter read "hi". She is having increased thirst and increased urination. [place] like she should come in before things got too bad. Denies any other symptoms at this time. No other abnormalities. Nothing she can account for in her diet that would cause blood sugars to be so high today. Allergies: Coded Allergies: lisinopril (Verified Adverse Reaction, Unknown, 07/11/18) "INCREASES BLOOD SUGAR" Home Meds Active Scripts Cephalexin 500 Mg Tab (KEFLEX 500 MG TAB) 500 Mg Tablet, 500 MG PO BID, #10 TAB Prov:DEBORAH MCMILLAN MD 09/06/18 Reported Medications Insulin Aspart (NOVOLOG) 100 Unit/Ml Soln, 100 UNIT SUBQ 09/05/18 Insulin Detemir (LEVEMIR) 100 Unit/Ml Injs, 100 UNIT SUBQ 09/05/18 Reviewed Nurses Notes: Yes Hx Substance Use Disorder: No Hx Alcohol Use: No Constitutional Vital Sign - Last 24 Hours 09/10/18 09/10/18 09/10/18 09/10/18 21:54 22:00 22:06 22:21 Temp 97.7 Pulse 101 90 92 Resp 18 B/P (MAP) 174/97 169/96 (120) Pulse Ox 92 96 96 O2 Delivery Room Air 09/10/18 09/10/18 09/10/18 09/10/18 22:31 22:36 22:56 23:00 Pulse 88 B/P (MAP) 161/90 (113) 151/99 (116) 142/87 (105) Pulse Ox 95 09/10/18 09/10/18 09/10/18 09/10/18 23:06 23:21 23:30 23:36 Pulse 82 84 93 B/P (MAP) 137/87 (104) Pulse Ox 95 95 95 09/10/18 09/10/18 09/11/18 09/11/18 23:41 23:56 00:00 00:05 Pulse 96 91 92 B/P (MAP) 145/92 (109) Pulse Ox 95 97 96 09/11/18 09/11/18 09/11/18 09/11/18 00:30 00:35 01:00 01:05 Pulse 97 93 B/P (MAP) 128/86 (100) 128/87 (101) Pulse Ox 95 95 09/11/18 09/11/18 01:30 01:35 B/P (MAP) 117/77 (90) Pulse Ox 95 Intake and Output 09/10/18 09/10/18 09/11/18 15:00 23:00 07:00 Intake Total 2000 ml Balance 2000 ml Physical Exam General Appearance: The patient is alert. No acute distress. Non-toxic in appearance. Eyes: Pupils are equal, round. No pallor, injection or icterus. ENT: Mucous membranes are moist. Normal oral mucosa. Posterior oropharynx is normal. Neck: Supple and non tender. Respiratory: Lungs are clear to auscultation. Cardiovascular: Regular rate and rhythm. No murmurs, gallops or rubs. Normal capillary refill. Gastrointestinal: Abdomen soft, nontender. Nondistended. Neurological: Alert and oriented x3. Cranial nerves II through XII show no acute deficits on my exam. No focal neurologic deficits in the extremities. Skin: Warm and dry. DIFFERENTIAL DIAGNOSIS: After history and physical exam, differential diagnosis was considered for elevated blood sugar today, we'll check for evidence of DKA or [facility] Medical Decision Making Data Points Result Diagram: 09/10/18 2225 09/11/18 0120 Laboratory Hematology Test 09/10/18 21:55 09/10/18 22:25 09/11/18 01:20 Urine Color Straw Urine Clarity Slightly-cloudy Urine pH 7.0 pH (4.8-9.5) Urine Specific [place] 1.016 Urine Protein 30 mg/dL (NEGATIVE) Urine Glucose (UA) 500 mg/dL (NEGATIVE) Urine Ketones Negative mg/dL (NEGATIVE) Urine Blood Negative (NEGATIVE) Urine Nitrite Negative (NEGATIVE) Urine Bilirubin Negative (NEGATIVE) Urine Urobilinogen Negative mg/dL (0.2-1.9) Urine Leukocyte Esterase Small (NEGATIVE) Urine RBC 1 /HPF (0-2/HPF) Urine WBC 3 /HPF (0-5/HPF) Urine Squamous Epithelial Cells Many /LPF (</=FEW) Urine Bacteria Negative /HPF (NONE-FEW) Urine Mucus None /HPF (NONE-FEW) Red Blood Count 4.73 M/uL (4.17-5.56) Mean Corpuscular Volume 89.4 fL (80.0-96.0) Mean Corpuscular Hemoglobin 28.3 pg (26.0-33.0) Mean Corpuscular Hemoglobin Concent 31.7 g/dL (32.0-36.0) Red Cell Distribution Width 13.6 % (11.5-14.5) Mean Platelet Volume 10.0 fL (7.2-11.1) Neutrophils (%) (Auto) 49.4 % (39.4-72.5) Lymphocytes (%) (Auto) 41.6 % (17.6-49.6) Monocytes (%) (Auto) 8.3 % (4.1-12.4) Eosinophils (%) (Auto) 0.3 % (0.4-6.7) Basophils (%) (Auto) 0.4 % (0.3-1.4) Nucleated RBC Relative Count (auto) 0.0 /100WBC Neutrophils # (Auto) 2.4 K/uL (2.0-7.4) Lymphocytes # (Auto) 2.1 K/uL (1.3-3.6) Monocytes # (Auto) 0.4 K/uL (0.3-1.0) Eosinophils # (Auto) 0.0 K/uL (0.0-0.5) Basophils # (Auto) 0.0 K/uL (0.0-0.1) Nucleated RBC Absolute Count (auto) 0.00 K/uL Total Bilirubin 0.2 mg/dl (0.2-1.3) Aspartate Amino Transf (AST/SGOT) 22 U/L (0-35) Alanine Aminotransferase (ALT/SGPT) 23 U/L (0-56) Alkaline Phosphatase 70 U/L (0-126) Total Protein 6.1 g/dl (6.3-8.2) Albumin 3.7 g/dl (3.5-5.0) Acetone, Qualitative Negative Sodium Level 134 mmol/L (137-145) Potassium Level 3.9 mmol/L (3.5-5.0) Chloride Level 104 mmol/L (98-107) Carbon Dioxide Level 21 mmol/L (22-31) Blood Urea Nitrogen 17 mg/dl (7-18) Creatinine 0.90 mg/dl (0.52-1.04) Glomerular Filtration Rate Calc > 60.0 Random Glucose 383 mg/dl (75-110) Calcium Level 8.5 mg/dl (8.4-10.2) Chemistry Test 09/10/18 21:55 09/10/18 22:25 09/11/18 01:20 Urine Color Straw Urine Clarity Slightly-cloudy Urine pH 7.0 pH (4.8-9.5) Urine Specific [place] 1.016 Urine Protein 30 mg/dL (NEGATIVE) Urine Glucose (UA) 500 mg/dL (NEGATIVE) Urine Ketones Negative mg/dL (NEGATIVE) Urine Blood Negative (NEGATIVE) Urine Nitrite Negative (NEGATIVE) Urine Bilirubin Negative (NEGATIVE) Urine Urobilinogen Negative mg/dL (0.2-1.9) Urine Leukocyte Esterase Small (NEGATIVE) Urine RBC 1 /HPF (0-2/HPF) Urine WBC 3 /HPF (0-5/HPF) Urine Squamous Epithelial Cells Many /LPF (</=FEW) Urine Bacteria Negative /HPF (NONE-FEW) Urine Mucus None /HPF (NONE-FEW) White Blood Count 4.9 k/uL (4.5-11.0) Red Blood Count 4.73 M/uL (4.17-5.56) Hemoglobin 13.4 g/dL (12.0-16.0) Hematocrit 42.3 % (34.0-47.0) Mean Corpuscular Volume 89.4 fL (80.0-96.0) Mean Corpuscular Hemoglobin 28.3 pg (26.0-33.0) Mean Corpuscular Hemoglobin Concent 31.7 g/dL (32.0-36.0) Red Cell Distribution Width 13.6 % (11.5-14.5) Platelet Count 210 K/uL (150-450) Mean Platelet Volume 10.0 fL (7.2-11.1) Neutrophils (%) (Auto) 49.4 % (39.4-72.5) Lymphocytes (%) (Auto) 41.6 % (17.6-49.6) Monocytes (%) (Auto) 8.3 % (4.1-12.4) Eosinophils (%) (Auto) 0.3 % (0.4-6.7) Basophils (%) (Auto) 0.4 % (0.3-1.4) Nucleated RBC Relative Count (auto) 0.0 /100WBC Neutrophils # (Auto) 2.4 K/uL (2.0-7.4) Lymphocytes # (Auto) 2.1 K/uL (1.3-3.6) Monocytes # (Auto) 0.4 K/uL (0.3-1.0) Eosinophils # (Auto) 0.0 K/uL (0.0-0.5) Basophils # (Auto) 0.0 K/uL (0.0-0.1) Nucleated RBC Absolute Count (auto) 0.00 K/uL Total Bilirubin 0.2 mg/dl (0.2-1.3) Aspartate Amino Transf (AST/SGOT) 22 U/L (0-35) Alanine Aminotransferase (ALT/SGPT) 23 U/L (0-56) Alkaline Phosphatase 70 U/L (0-126) Total Protein 6.1 g/dl (6.3-8.2) Albumin 3.7 g/dl (3.5-5.0) Acetone, Qualitative Negative Glomerular Filtration Rate Calc > 60.0 Calcium Level 8.5 mg/dl (8.4-10.2) Toxicology Test 09/10/18 22:25 Acetone, Qualitative Negative Urinalysis Test 09/10/18 21:55 Urine Color Straw Urine Clarity Slightly-cloudy Urine pH 7.0 pH (4.8-9.5) Urine Specific [place] 1.016 Urine Protein 30 mg/dL (NEGATIVE) Urine Glucose (UA) 500 mg/dL (NEGATIVE) Urine Ketones Negative mg/dL (NEGATIVE) Urine Blood Negative (NEGATIVE) Urine Nitrite Negative (NEGATIVE) Urine Bilirubin Negative (NEGATIVE) Urine Urobilinogen Negative mg/dL (0.2-1.9) Urine Leukocyte Esterase Small (NEGATIVE) Urine RBC 1 /HPF (0-2/HPF) Urine WBC 3 /HPF (0-5/HPF) Urine Squamous Epithelial Cells Many /LPF (</=FEW) Urine Bacteria Negative /HPF (NONE-FEW) Urine Mucus None /HPF (NONE-FEW) ED Course/Re-evaluation ED Course Labs obtained. Patient does have a significantly elevated blood sugar above 900. 15 units of subcutaneous NovoLog insulin was given. Patient was given a liter of normal saline as well. Sodium level is 127, corrected sodium is 140. Potassium mildly elevated at 5.2 the total body calcium is likely lower than this. I reviewed this with the patient. We gave a second liter of normal saline. Repeated blood sugar just over 700. Gave another 8 units of subcutaneous insulin. Repeated BMP later showed improvement of glucose, electrolytes and BUN/Cr. Home without changes to insulin, but with instructions to follow-up with real estate salesperson. Decision to Disposition Date: Sep 11, 2018 Decision to Disposition Time: 02:22 Depart Departure Latest Vital Signs Vital Signs Date Time Temp Pulse Resp B/P (MAP) Pulse Ox O2 Delivery O2 Flow Rate FiO2 09/11/18 01:35 95 09/11/18 01:30 117/77 (90) 09/11/18 01:05 93 09/10/18 21:54 97.7 18 Room Air Impression: Primary Impression: Hyperglycemia due to type 2 diabetes mellitus Condition: Improved Disposition: HOME OR SELF-CARE Patient Instructions: Hyperosmolar Hyperglycemic State (ED) Additional Instructions: Rest and increase fluid intake. Continue with your long acting and regular insulins and follow-up with endocrinology. 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
[2018-09-10] MEDS ORDERED: NS(*) 0.9% 1000 ML BAG 1,000 ML IV ONE ×2 (22:05→22:55)
[2018-09-10] MEDS ORDERED: INSULIN ASPART 100 UN/ML VIAL SUBQ ONE (22:15)
[2018-09-10] MEDS ORDERED: ONDANSETRON 4 MG/2 ML VIAL IVP ONE (22:35)
[2018-09-10 22:39] LABS: PLATELET COUNT, AUTOMATED 210 K/uL (150-450)
[2018-09-11] MEDS ORDERED: INSULIN ASPART 100 UN/ML VIAL SUBQ ONE (00:25)
[2018-09-11 01:30] VITALS: BP 117/77
== END 2018-09-11 02:31 | disposition home or self-care (01) ==
LOC: ER 22:14
DX: E11.65 Type 2 diabetes mellitus with hyperglycemia (principal); Z79.4 Long term (current) use of insulin
CPT/HCPCS: 36415; 81001; 82009; 85025; 96361; 96372; 96374; 99284; J2405; J7030; 82040; 82247; 82310; 82374; 82435; 82565; 82947; 84075; 84132; 84155; 84295; 84450; 84460; 84520

== ENCOUNTER → 2018-09-14 | Outpatient (REF) | payer MEDICAID | LOC: ZZSENDIN 11:35 | PROVIDERS: ATTEND Family Medicine | DX: E10.22 Type 1 diabetes mellitus with diabetic chronic kidney disease (principal) | CPT/HCPCS: 81001 ==

== ENCOUNTER 2018-10-26 07:54 | Emergency (ER) | payer MEDICAID ==
--- NOTE | 2018-10-26 07:59 | ER Report ---
History and Physical Time Seen By MD: 07:59 HPI/ROS Presents with PRATER c/w regular migraine PRATER's. Patient states that she usually does not vomit with her migraine PRATER's and is therefore able to take PO meds. However, today she is vomiting and unable to take PO. Also a diabetic, so worried about her sugars with vomiting. Remainder of the 14 system rev: Yes Allergies: Coded Allergies: lisinopril (Verified Adverse Reaction, Unknown, 07/11/18) "INCREASES BLOOD SUGAR" Home Meds Reported Medications Paroxetine Hcl (PAXIL) 10 Mg Tablet, 10 MG PO QDAY 10/26/18 Insulin Aspart (NOVOLOG) 100 Unit/Ml Soln, 100 UNIT SUBQ 09/05/18 Insulin Detemir (LEVEMIR) 100 Unit/Ml Injs, 100 UNIT SUBQ 09/05/18 Discontinued Scripts Cephalexin 500 Mg Tab (KEFLEX 500 MG TAB) 500 Mg Tablet, 500 MG PO BID, #10 TAB Prov:DEBORAH MCMILLAN MD 09/06/18 Reviewed Nurses Notes: Yes Old Medical Records Reviewed: Yes Hx Substance Use Disorder: No Hx Alcohol Use: No Constitutional Vital Sign - Last 24 Hours 10/26/18 10/26/18 10/26/18 10/26/18 07:54 07:57 07:57 08:00 Temp 97.8 Pulse ??? 86 Resp 16 B/P (MAP) 145/92 145/92 (109) 123/98 (106) Pulse Ox 97 O2 Delivery Room Air 10/26/18 10/26/18 10/26/18 10/26/18 08:14 08:30 08:34 08:39 Pulse 84 96 92 B/P (MAP) 123/87 (99) Pulse Ox 92 98 97 10/26/18 10/26/18 10/26/18 10/26/18 08:59 09:00 09:19 09:30 Pulse 83 75 B/P (MAP) 141/83 (102) 133/84 (100) Pulse Ox 95 96 10/26/18 10/26/18 10/26/18 10/26/18 09:39 09:44 10:00 10:04 Pulse 84 82 85 B/P (MAP) 117/81 (93) Pulse Ox 97 97 98 Intake and Output 10/26/18 10/26/18 10/27/18 15:00 23:00 07:00 Intake Total 1000 ml Balance 1000 ml Physical Exam General Appearance: The patient is alert, has no immediate need for airway protection and no current signs of toxicity. Eyes: PERRL, EOMI Respiratory: Chest is non tender, lungs are clear to auscultation. Cardiac: regular rate and rhythm Neck: Neck is supple and non tender. Extremities have full range of motion and are non tender. Skin: No rashes or lesions. DIFFERENTIAL DIAGNOSIS: After history and physical exam differential diagnosis was considered for headache including but not limited to subarachnoid hemorrhage, migraine headache, tension headache and infectious causes such as meningitis, pharyngitis and sinusitis. Medical Decision Making ED Course/Re-evaluation ED Course Uncomplicated migraine. Improved with IV fluids and medications. Not worse of life. No fever. WIll continue home regimen. Decision to Disposition Date: Oct 26, 2018 Decision to Disposition Time: 10:20 Depart Departure Latest Vital Signs Vital Signs Date Time Temp Pulse Resp B/P (MAP) Pulse Ox O2 Delivery O2 Flow Rate FiO2 10/26/18 10:04 85 98 10/26/18 10:00 117/81 (93) 10/26/18 07:57 97.8 16 Room Air Impression: Primary Impression: Migraine headache Condition: Improved Disposition: HOME OR SELF-CARE Patient Instructions: Migraine Headache (ED) Problem Qualifiers Primary Impression: Migraine headache Migraine type: unspecified Status migrainosus presence: without status migrainosus Intractability: not intractable Qualified Codes: G43.909 - Migraine, unspecified, not intractable, without status migrainosus DEBORAH MCMILLAN MD Oct 26, 2018 07:59
[2018-10-26] MEDS ORDERED: PARO-242 PO (08:02)
[2018-10-26] MEDS ORDERED: diphenhydrAMINE 50 MG/ML VIAL IVP ONE (08:15)
[2018-10-26] MEDS ORDERED: KETOROLAC 30 MG/ML VIAL IVP ONE (08:15)
[2018-10-26] MEDS ORDERED: METOCLOPRAMIDE 10 MG/2 ML SDV IVP ONE (08:15)
[2018-10-26] MEDS ORDERED: NS(*) 0.9% 1000 ML BAG 1,000 ML IV ONE (08:15)
[2018-10-26 10:00] VITALS: BP 117/81
== END 2018-10-26 10:31 | disposition home or self-care (01) ==
LOC: ER 08:09
DX: G43.909 Migraine, unspecified, not intractable, without status migrainosus (principal)
CPT/HCPCS: 96361; 96374; 96375; 99284; J1200; J1885; J2765; J7030